=== PATIENT | female | born 1985 | race Caucasian/White ===

== ENCOUNTER → 2016-11-28 | Outpatient (CLI) | payer MEDICAID ==
[~2016-11-28] MED LIST: GADOBUTROL 10 ML VIAL IVP ONE
== END ==
LOC: FIMAGING 14:57
PROVIDERS: ATTEND Otolaryngology
DX: G93.0 Cerebral cysts (principal); R42 Dizziness and giddiness; H91.90 Unspecified hearing loss, unspecified ear
CPT/HCPCS: A9585

== ENCOUNTER 2018-05-12 12:07 | Emergency (ER) | payer MEDICAID ==
[2018-05-12] MEDS ORDERED: LORazepam 2 MG/ML INJ IVP ONE (12:12)
[2018-05-12] MEDS ORDERED: NS 1,000 ML IV ONE (12:12)
[2018-05-12] MEDS ORDERED: RANITIDINE 50 MG/2 ML VIAL IVP ONE (12:12)
--- NOTE | 2018-05-12 12:12 | EDPHY ---
H & P Time Seen by Provider: 05/12/18 12:08 HPI/ROS: HPI: This is a 33-year-old female who presents with Chief Complaint: Panic attack, hyperventilation Location: Body Quality: Hyperventilation, bilateral arm numbness, lip numbness Duration: 30 min prior to arrival Signs and Symptoms: no shortness of breath at rest, no shortness of breath on exertion, no cough, no chest pain, no palpitations, no lower extremity edema, no wheezing, no orthopnea, no paroxysmal nocturnal dyspnea, no fever, no injury/ trauma, no hemoptysis, no carpal pedal spasms Timing: Acute, resolving Severity: Moderate Context: 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 Patient reports that she was seen at the clinic yesterday and diagnosed with a vaginal yeast infection. She took Diflucan last night. She believes that she may be having allergic reaction to the Diflucan. She denies shortness of breath, chest pain, nausea, vomiting, rash, difficulty swallowing, drooling, difficulty talking. Patient reports that she has a history of "GI issues." Modifying Factors: EMS report that patient appears to be having a panic attack. Comment: ROS: A comprehensive 10 system review of systems is otherwise negative aside from elements mentioned in the history of present illness. MEDICAL/SURGICAL/SOCIAL HISTORY: Medical history: Arachnoid cyst. Does not take any regular medications. Surgical history: Denies Social history: Employed as a nanny. Nonsmoker. CONSTITUTIONAL: Anxious, extremely well-appearing adult white female, awake and alert, no obvious distress HEENT: Atraumatic and normocephalic, PERRL, EOMI. Nares patent; no rhinorrhea; no nasal mucosal edema. Tympanic membranes clear. Oropharynx clear, no exudate and moist pink mucosa. Airway patent. No lymphadenopathy. No meningismus. Cardiovascular: Normal S1/S2, regular rate, regular rhythm, without murmur rub or gallop. PULMONARY/CHEST: Symmetrical and nontender. Clear to auscultation bilaterally. Good air movement. No accessory muscle usage. ABDOMEN: Soft, nondistended, nontender, no rebound, no guarding, no peritoneal signs, no masses or organomegaly. No CVAT. EXTREMITIES: 2/2 pulses, strength 5/5, no deformities, no clubbing, no cyanosis or edema. NEUROLOGICAL: no focal neuro deficits. GCS 15. Cranial nerves 2-12 grossly intact. SKIN: Warm and dry, no erythema. no rash. Good capillary refill. Source: Patient Exam Limitations: No limitations Constitutional: Initial Vital Signs Temperature (C) 36.8 C 05/12/18 12:21 Heart Rate 62 05/12/18 12:21 Respiratory Rate 18 05/12/18 12:21 Blood Pressure 127/86 H 05/12/18 12:21 O2 Sat (%) 100 05/12/18 12:21 O2 Delivery Mode Room Air Allergies/Adverse Reactions: pseudoephedrine [From Sudafed] Allergy (Verified 05/12/18 12:24) Home Medications: Medication Instructions Recorded Potassium Chloride [Klor-Con 10] 10 meq PO DAILY 2 Days tablet.er 05/12/18 Medical Decision Making - Diagnostics Imaging Results: Imaging Impressions Chest/Thorax CTA 05/12/18 13:04 Impression: 1. No definite pulmonary thromboemboli. 2. No acute pulmonary disease. Findings and recommendations discussed with Emergency Department physician, Rachelle Ross PAC at 1416 hour, 05/12/2018. Final report concurs with initial preliminary interpretation. ED Course/Re-evaluation: Vital signs reviewed and stable upon arrival. Placed on cardiac/vascular sonographer. I-STAT including CBC, BMP, serum HCG and D-dimer ordered Patient reports that she is allergic to Benadryl. Given 1 L normal saline, IV Zantac and IV Ativan 0.25 mg 1235: Labs reviewed. No signs of leukocytosis/anemia/platelet dysfunction/TROY/ elevated LFTs. Potassium 3.1, magnesium level ordered Given potassium supplementation 40 mEq 1300: D-dimer elevated; CTA chest ordered 1409: Magnesium 2.1 NIHSS=0 1418: Called by Dr. Pa, that CTA chest shows no pulmonary embolism. 1445: Patient now complaining of vision changes and headache for the last 15 minutes. No neurological deficits to warrant MRI imaging. Mom at bedside has history of migraines ocular type. Patient has no signs of Roe's palsy/temporal arteritis/CVA Patient will be discharged home with repeat lab draw in 3-5 days, script for potassium supplementation x3 days. This patient was seen under the supervision of my secondary supervising physician. I evaluated care for this patient with attending. Discussed this patient with Dr. Castillo. Differential Diagnosis: Differential diagnosis includes but is not limited to allergic reaction, angio edema, anaphylaxis, pulmonary embolism, medication side effect. - Data Points Laboratory Results: Laboratory Results 05/12/18 12:15 05/12/18 12:15 05/12/18 05/12/18 05/12/18 12:19 12:15 12:15 WBC RBC Hgb POC Hgb 16.3 gm/dL gm/dL (12.6-16.3) Hct POC Hct 48 % H % (38-47) MCV MCH MCHC RDW Plt Count MPV Neut % (Auto) Lymph % (Auto) Pierce % (Auto) Eos % (Auto) Baso % (Auto) Nucleat RBC Rel Count Absolute Neuts (auto) Absolute Lymphs (auto) Absolute Monos (auto) Absolute Eos (auto) Absolute Basos (auto) Absolute Nucleated RBC Immature Gran % Immature Gran # D-Dimer POC Sodium 141 mEq/L mEq/L (135-145) Sodium 137 mEq/L mEq/L (135-145) POC Potassium 3.1 mEq/L L mEq/L (3.3-5.0) Potassium 3.7 mEq/L mEq/L (3.5-5.2) POC Chloride 103 mEq/L mEq/L (97-110) Chloride 102 mEq/L mEq/L (97-110) Carbon Dioxide 23 mEq/l mEq/l (22-31) POC Total CO2 23 mEq/L mEq/L (22-31) Anion Gap 12 mEq/L mEq/L (6-14) POC BUN 10 mg/dL mg/dL (7-23) BUN 13 mg/dL mg/dL (7-23) Creatinine 0.9 mg/dL mg/dL (0.6-1.0) POC Creatinine 0.9 mg/dL mg/dL (0.6-1.0) Estimated GFR > 60 Glucose 107 mg/dL H mg/dL (70-100) POC Glucose 112 mg/dL H mg/dL (70-100) Calcium 9.9 mg/dL mg/dL (8.5-10.4) Magnesium 2.1 mg/dL mg/dL (1.6-2.3) Beta HCG, Qual NEGATIVE 05/12/18 05/12/18 12:15 12:15 WBC 5.49 10^3/uL 10^3/uL (3.80-9.50) RBC 4.88 10^6/uL 10^6/uL (4.18-5.33) Hgb 15.2 g/dL g/dL (12.6-16.3) POC Hgb Hct 46.1 % % (38.0-47.0) POC Hct MCV 94.5 fL fL (81.5-99.8) MCH 31.1 pg pg (27.9-34.1) MCHC 33.0 g/dL g/dL (32.4-36.7) RDW 12.4 % % (11.5-15.2) Plt Count 301 10^3/uL 10^3/uL (150-400) MPV 10.0 fL fL (8.7-11.7) Neut % (Auto) 53.5 % % (39.3-74.2) Lymph % (Auto) 36.8 % % (15.0-45.0) Pierce % (Auto) 7.5 % % (4.5-13.0) Eos % (Auto) 1.3 % % (0.6-7.6) Baso % (Auto) 0.7 % % (0.3-1.7) Nucleat RBC Rel Count 0.0 % % (0.0-0.2) Absolute Neuts (auto) 2.94 10^3/uL 10^3/uL (1.70-6.50) Absolute Lymphs (auto) 2.02 10^3/uL 10^3/uL (1.00-3.00) Absolute Monos (auto) 0.41 10^3/uL 10^3/uL (0.30-0.80) Absolute Eos (auto) 0.07 10^3/uL 10^3/uL (0.03-0.40) Absolute Basos (auto) 0.04 10^3/uL 10^3/uL (0.02-0.10) Absolute Nucleated RBC 0.00 10^3/uL 10^3/uL (0-0.01) Immature Gran % 0.2 % % (0.0-1.1) Immature Gran # 0.01 10^3/uL 10^3/uL (0.00-0.10) D-Dimer 0.55 ug/mLFEU H ug/mLFEU (0.00-0.50) POC Sodium Sodium POC Potassium Potassium POC Chloride Chloride Carbon Dioxide POC Total CO2 Anion Gap POC BUN BUN Creatinine POC Creatinine Estimated GFR Glucose POC Glucose Calcium Magnesium Beta HCG, Qual Medications Given: Discontinued Medications Sodium Chloride (Ns) 1,000 mls @ 0 mls/hr IV ONCE ONE; Wide Open PRN Reason: Protocol Stop: 05/12/18 12:13 Last Admin: 05/12/18 12:26 Dose: 1,000 mls Lorazepam (Ativan Injection) 0.25 mg IVP EDNOW ONE Stop: 05/12/18 12:13 Last Admin: 05/12/18 12:28 Dose: 0.25 mg Potassium Chloride (Klor-Con) 40 meq PO ONCE ONE Stop: 05/12/18 12:41 Last Admin: 05/12/18 13:31 Dose: 40 meq Ranitidine HCl (Zantac) 50 mg IVP EDNOW ONE Stop: 05/12/18 12:13 Last Admin: 05/12/18 12:27 Dose: 50 mg Point of Care Test Results: Chemistry 05/12/18 12:19 POC Sodium 141 mEq/L mEq/L (135-145) POC Potassium 3.1 mEq/L L mEq/L (3.3-5.0) POC Chloride 103 mEq/L mEq/L (97-110) POC Total CO2 23 mEq/L mEq/L (22-31) POC BUN 10 mg/dL mg/dL (7-23) POC Creatinine 0.9 mg/dL mg/dL (0.6-1.0) POC Glucose 112 mg/dL H mg/dL (70-100) ISTAT H&H 05/12/18 12:19 POC Hgb 16.3 gm/dL gm/dL (12.6-16.3) POC Hct 48 % H % (38-47) Departure - Departure Disposition: Home, Routine, Self-Care Clinical Impression: Hypokalemia, Ocular migraine Condition: Good Instructions: Potassium Content of Foods List (ED), Hypokalemia (ED), Ocular Migraine (ED) Additional Instructions: Rest as much as possible until you are feeling better. Consume a minimum of 8-10 glasses of water or electrolyte fluid replacement drinks that include Gatorade, Powerade, Pedialyte. Eat a bland diet for the next 48 hours and then slowly advance as tolerated. Take potassium supplementation x2 days starting tomorrow. Follow-up with primary care provider in 3-5 days for repeat potassium lab draw. Follow-up with Neurology in the next 1-2 weeks to evaluate for ocular migraine. Referrals: Patient,NotPresent [Unknown] - As per Instructions Jorge L Murphy DO [Medical Doctor] - As per Instructions Prescriptions: Potassium Chloride [Klor-Con 10] 10 meq PO DAILY 2 Days tablet.er
[2018-05-12 12:39] LABS: PLATELET COUNT 301 10^3/uL (150-400)
[2018-05-12] MEDS ORDERED: POTASSIUM CL 20 MEQ TAB PO ONE (12:40)
[2018-05-12] MEDS ORDERED: IOPAMIDOL (ISOVUE 370) 100 ML BTL IV ONE (13:14)
[2018-05-12 14:46] VITALS: BP 122/78
== END 2018-05-12 14:45 | disposition home or self-care (01) ==
LOC: EDUNIT#
DX: E87.6 Hypokalemia (principal); G43.109 Migraine with aura, not intractable, without status migrainosus; R20.2 Paresthesia of skin; B37.9 Candidiasis, unspecified; E86.9 Volume depletion, unspecified
CPT/HCPCS: 82435-PO; 82565-PO; 82947-PO; 84132-PO; 84295-PO; 84520-PO; 85014-ER; 96374; J2060; J2780; Q9967